=== PATIENT | male | born 1995 | race Two or more races ===

== ENCOUNTER 2022-01-22 15:28 | Emergency (ER) | payer MEDICAID ==
[~2022-01-22] VITALS: Ht 175.3 cm; Wt 87.3 kg
[~2022-01-22 15:28] MED LIST: CLOT15CR4 TOP
[2022-01-22] MEDS ORDERED: ondansetron/PF 4mg/2ml inj IV ONE (15:45)
[2022-01-22] MEDS ORDERED: ketorolac trometh. 30mg/ml inj. IV ONE ×2 (15:45→16:05)
[2022-01-22] MEDS ORDERED: normal saline 1000ML IV soln IVB ONE (15:45)
[2022-01-22 16:00] VITALS: BP 126/69
== END 2022-01-22 19:33 | disposition home or self-care (01) ==
LOC: ER 15:29
DX: J10.1 Influenza due to other identified influenza virus with other respiratory manifestations (principal); F14.10 Cocaine abuse, uncomplicated; Z88.5 Allergy status to narcotic agent; Z79.899 Other long term (current) drug therapy
CPT/HCPCS: 87502; 87503; 96361; 96374; 96375; 99284; J1885; J2405; J7030

== ENCOUNTER 2025-08-08 11:51 | Emergency (ER) | payer SELFPAY ==
[~2025-08-08] VITALS: Ht 175.3 cm; Wt 88.6 kg
[2025-08-08 11:54] VITALS: BP 153/87; PULSE 95; RESP 16; TEMP 98; O2SAT 98
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
== END 2025-08-08 12:16 ==
LOC: ER 11:52
DX: Z02.89 Encounter for other administrative examinations (principal); F14.90 Cocaine use, unspecified, uncomplicated; Z88.5 Allergy status to narcotic agent; Z79.899 Other long term (current) drug therapy; Z72.89 Other problems related to lifestyle; V89.2XXA Person injured in unspecified motor-vehicle accident, traffic, initial encounter; Y93.89 Activity, other specified; Y92.89 Other specified places as the place of occurrence of the external cause; Y99.8 Other external cause status
CPT/HCPCS: 99283